=== PATIENT | female | born 1965 | race Caucasian/White ===

== ENCOUNTER 2018-05-01 12:59 | Emergency (ER) | payer MEDICARE, OTHER ==
[~2018-05-01] VITALS: Ht 162.6 cm; Wt 72.6 kg
[2018-05-01] MEDS ORDERED: OXYBUTYIN (13:17)
[2018-05-01] MEDS ORDERED: GABAPENTIN (13:18)
[2018-05-01] MEDS ORDERED: HYDROCODONE (13:21)
[2018-05-01] MEDS ORDERED: FLOMAX (13:21)
[2018-05-01] MEDS ORDERED: TRAMADOL (13:23)
[2018-05-01 13:24] LABS: BILIRUBIN,URINE NEGATIVE (NEGATIVE); CLARITY,URINE SLIGHTLY CLOUDY; COLOR,URINE YELLOW; GLUCOSE, URINE (UA) NEGATIVE (NEGATIVE); KETONES,URINE NEGATIVE (NEGATIVE); LEUKOCYTE ESTERASE ,URINE 3+ (NEGATIVE); NITRITE,URINE NEGATIVE (NEGATIVE); PH,URINE 6.5 (5-9); PROTEIN,URINE NEGATIVE (NEGATIVE); UROBILINOGEN,URINE NORMAL (NORMAL)
[2018-05-01] MEDS ORDERED: KETOROLAC 30 MG/ML VIAL IVP ONE (13:30)
--- NOTE | 2018-05-01 13:30 | ED GU-Female ---
General Chief Complaint: -Female Stated Complaint: TROUBLE URINATING Source: patient Exam Limitations: no limitations History of Present Illness Date Seen by Provider: May 01, 2018 Time Seen by Provider: 13:28 Initial Comments To ER with a one-week history of suprapubic abdominal pain described as pressure. She states it feels like an "10 pound sack of potatoes sitting on top of my bladder". She has dysuria, states that she feels the need to urinate but is only able to dribble when she goes, she always feels as though her bladder is full. She has no fevers or chills. No injury. She's had a complete hysterectomy. About 3 weeks ago she had some left flank pain that has since passed. At the onset of this pain she followed up with primary care who suspected a small kidney stone based on hematuria without sign of infection on the urine, normal KUB. She was given Flomax and hydrocodone but her symptoms persist. History of fibromyalgia. Timing/Duration: constant Severity/Quality: cramping Location: suprapubic Radiation: none Activities at Onset: none Associated Symptoms: abdominal pain, dysuria; No nausea/vomiting; urinary frequency Allergies and Home Medications Allergies Uncoded Allergies: INTERFERON (Allergy, Unknown, 05/01/18) Patient Home Medication List Home Medication List Reviewed: Yes Review of Systems Review of Systems Constitutional: see HPI EENTM: see HPI Respiratory: no symptoms reported Cardiovascular: no symptoms reported Genitourinary: see HPI Musculoskeletal: no symptoms reported Skin: no symptoms reported Psychiatric/Neurological: No Symptoms Reported Past Attucvl-Cqtjib-Oodoaa Hx Patient Social History Alcohol Use: Denies Use Recreational Drug Use: No Smoking Status: Current Everyday Smoker Recent Foreign Travel: No Contact w/Someone Who Travel: No Past Medical History Surgeries: Yes Appendectomy, Section, Gallbladder, Hysterectomy Respiratory: No Cardiac: No Neurological: No Genitourinary: No Gastrointestinal: No Musculoskeletal: Yes Fibromyalgia Endocrine: No Cancer: No Psychosocial: No Integumentary: No Physical Exam Vital Signs Vital Signs - First Documented 05/01/18 13:03 Temp 96.8 Pulse 129 Resp 18 B/P (MAP) 156/113 (127) Pulse Ox 94 Capillary Refill : Height, Weight, BMI Height: '" Weight: lbs. oz. kg; BMI Method: General Appearance: WD/WN, no apparent distress HEENT: PERRL/EOMI, normal ENT inspection Respiratory: no respiratory distress, no accessory muscle use Gastrointestinal: normal bowel sounds, non tender, soft Extremities: normal range of motion, non-tender Neurologic/Psychiatric: alert, normal mood/affect, oriented x 3 Skin: normal color, warm/dry Progress/Results/Core Measures Suspected Sepsis SIRS Temperature: Pulse: Respiratory Rate: Laboratory Tests 05/01/18 13:43: White Blood Count 4.7 Blood Pressure / Mean: Laboratory Tests 05/01/18 13:43: Creatinine 0.85, Platelet Count 166 Results/Orders Lab Results Laboratory Tests Test 05/01/18 13:18 05/01/18 13:43 Range/Units Urine Color YELLOW Urine Clarity SLIGHTLY CLOUDY Urine pH 6.5 5-9 Urine Specific [place] 1.010 L 1.016-1.022 Urine Protein NEGATIVE NEGATIVE Urine Glucose (UA) NEGATIVE NEGATIVE Urine Ketones NEGATIVE NEGATIVE Urine Nitrite NEGATIVE NEGATIVE Urine Bilirubin NEGATIVE NEGATIVE Urine Urobilinogen NORMAL NORMAL MG/DL Urine Leukocyte Esterase 3+ H NEGATIVE Urine RBC (Auto) 2+ H NEGATIVE Urine RBC RARE /HPF Urine WBC 5-10 H /HPF Urine Squamous Epithelial Cells RARE /HPF Urine Crystals NONE /LPF Urine Bacteria TRACE /HPF Urine Casts NONE /LPF Urine Mucus SMALL H /LPF Urine Culture Indicated YES White Blood Count 4.7 4.3-11.0 10^3/uL Red Blood Count 5.64 4.35-5.85 10^6/uL Hemoglobin 15.4 11.5-16.0 G/DL Hematocrit 48 35-52 % Mean Corpuscular Volume 85 80-99 FL Mean Corpuscular Hemoglobin 27 25-34 PG Mean Corpuscular Hemoglobin Concent 32 32-36 G/DL Red Cell Distribution Width 13.8 10.0-14.5 % Platelet Count 166 130-400 10^3/uL Mean Platelet Volume 12.7 H 7.4-10.4 FL Neutrophils (%) (Auto) 49 42-75 % Lymphocytes (%) (Auto) 39 12-44 % Monocytes (%) (Auto) 7 0-12 % Eosinophils (%) (Auto) 5 0-10 % Basophils (%) (Auto) 0 0-10 % Neutrophils # (Auto) 2.3 1.8-7.8 X 10^3 Lymphocytes # (Auto) 1.8 1.0-4.0 X 10^3 Monocytes # (Auto) 0.3 0.0-1.0 X 10^3 Eosinophils # (Auto) 0.2 0.0-0.3 10^3/uL Basophils # (Auto) 0.0 0.0-0.1 10^3/uL Sodium Level 139 135-145 MMOL/L Potassium Level 4.0 3.6-5.0 MMOL/L Chloride Level 104 98-107 MMOL/L Carbon Dioxide Level 26 21-32 MMOL/L Anion Gap 9 5-14 MMOL/L Blood Urea Nitrogen 8 7-18 MG/DL Creatinine 0.85 0.60-1.30 MG/DL Estimat Glomerular Filtration Rate > 60 BUN/Creatinine Ratio 9 Glucose Level 109 H 70-105 MG/DL Calcium Level 9.6 8.5-10.1 MG/DL My Orders Orders - HANDY ANDERSEN APRN Ua Culture If Indicated (05/01/18 13:00) Cbc With Automated Diff (05/01/18 13:26) Basic Metabolic Panel (05/01/18 13:26) Ct Abd/Pelvis Wo(Kidney Stone) (05/01/18 13:26) Iv Heplock-Insert (Order) (05/01/18 13:26) Ketorolac Injection (Toradol Injection) (05/01/18 13:30) Urine Culture (05/01/18 13:18) Medications Given in ED Current Medications Medications Dose Ordered Sig/Jovany Route Start Time Stop Time Status Last Admin Dose Admin Ketorolac Tromethamine 15 mg ONCE ONCE IVP 05/01/18 13:30 05/01/18 13:31 DC 05/01/18 13:41 15 MG Vital Signs/I&O 05/01/18 13:03 Temp 96.8 Pulse 129 Resp 18 B/P (MAP) 156/113 (127) Pulse Ox 94 Capillary Refill : Diagnostic Imaging Diagonstic Imaging: CT Comments NAME: LENORA ROCA Gwen [facility] REC#: [id number] PT STATUS: REG ER : 1965 PHYSICIAN: HANDY ANDERSEN APRN ADMIT DATE: 05/01/18/ER Draft Date of Exam:05/01/18 CT ABD/PELVIS WO(KIDNEY STONE) PROCEDURE: CT urinary tract, rule out kidney stone. TECHNIQUE: Multiple contiguous axial images were obtained through the abdomen and pelvis without the use of intravenous contrast. INDICATION: Pelvic pressure. No prior studies are available for comparison. The lung bases are clear. No discrete liver mass is identified. Gallbladder is surgically absent. No biliary ductal dilatation is seen. The pancreas and spleen are unremarkable. No adrenal mass is identified. No renal calculi or hydronephrosis is identified. The aorta is non-aneurysmal. Small and large bowel loops are normal caliber. No obstruction is seen. There is no ascites. There is moderate stool in the colon. The uterus appears to be absent or atrophic. Bladder is unremarkable. No inflammatory changes are seen. IMPRESSION: Moderate stool in the colon suggestive of constipation. Study is otherwise unremarkable. No acute features detected. Dictated on workstation # [id number] Dict: 05/01/18 1445 Trans: 05/01/18 1502 [facility] [id number] Interpreted by: DARWIN SKAGGS MD Electronically signed by: Departure Impression Primary Impression: Urinary tract infection Qualified Codes: N30.00 - Acute cystitis without hematuria Disposition: HOME, SELF-CARE Condition: Stable Departure-Patient Inst. Decision time for Depature: 15:22 Referrals: NO,LOCAL PHYSICIAN (PCP) Primary Care Physician MAVERICK PECK MD Patient Instructions: Urinary Tract Infection, Adult (DC) Add. Discharge Instructions: 1. Antibiotics as directed 2. Return to ER for any concerns 3. Follow-up with Dr. Peck. All discharge instructions reviewed with patient and/or family. Voiced understanding. Scripts Polyethylene Glycol 3350 (Miralax) 17 Gm Powd.pack 17 GM PO BID, #10 EACH Prov: HANDY ANDERSEN KETTLE OPERATOR 05/01/18 Phenazopyridine HCl (Pyridium) 100 Mg Tablet 100 MG PO TID, #6 TAB Prov: HANDY ANDERSEN APRN 05/01/18 Sulfamethoxazole/Trimethoprim (Bactrim Ds Tablet) 1 Each Tablet 1 EACH PO BID, #10 TAB Prov: HANDY ANDERSEN APRN 05/01/18 HANDY ANDERSEN APRN May 01, 2018 13:30
[2018-05-01 13:31] LABS: BACTERIA,URINE TRACE /HPF; RBC,URINE RARE /HPF; SQUAMOUS EPITHELIAL CELL,UR RARE /HPF
[2018-05-01 13:53] LABS: BASOPHILS % (AUTO) 0 % (0-10); EOSINOPHILS # (AUTO) 0.2 10^3/uL (0.0-0.3); EOSINOPHILS % (AUTO) 5 % (0-10); HEMATOCRIT 48 % (35-52); HEMOGLOBIN 15.4 G/DL (11.5-16.0); LYMPHOCYTES # (AUTO) 1.8 X 10^3 (1.0-4.0); LYMPHOCYTES % (AUTO) 39 % (12-44); MEAN CORPUSCULAR HEMOGLOBIN 27 PG (25-34); MEAN CORPUSCULAR HGB CONC 32 G/DL (32-36); MEAN CORPUSCULAR VOLUME 85 FL (80-99); MEAN PLATELET VOLUME 12.7 FL (7.4-10.4); MONOCYTES # (AUTO) 0.3 X 10^3 (0.0-1.0); MONOCYTES % (AUTO) 7 % (0-12); NEUTROPHILS # (AUTO) 2.3 X 10^3 (1.8-7.8); NEUTROPHILS % (AUTO) 49 % (42-75); PLATELET COUNT 166 10^3/uL (130-400); RED CELL DISTRIBUTION WIDTH 13.8 % (10.0-14.5); WHITE BLOOD COUNT 4.7 10^3/uL (4.3-11.0)
[2018-05-01 14:12] LABS: BUN/CREATININE RATIO 9; CALCIUM 9.6 MG/DL (8.5-10.1); CARBON DIOXIDE 26 MMOL/L (21-32); CHLORIDE 104 MMOL/L (98-107); CREATININE SERUM 0.85 MG/DL (0.60-1.30); GFR ESTIMATED > 60; GLUCOSE 109 MG/DL (70-105); SODIUM 139 MMOL/L (135-145)
--- NOTE | 2018-05-01 15:03 | Diagnostic Imaging Report ---
PROCEDURE: CT urinary tract, rule out kidney stone. TECHNIQUE: Multiple contiguous axial images were obtained through the abdomen and pelvis without the use of intravenous contrast. INDICATION: Pelvic pressure. No prior studies are available for comparison. The lung bases are clear. No discrete liver mass is identified. Gallbladder is surgically absent. No biliary ductal dilatation is seen. The pancreas and spleen are unremarkable. No adrenal mass is identified. No renal calculi or hydronephrosis is identified. The aorta is non-aneurysmal. Small and large bowel loops are normal caliber. No obstruction is seen. There is no ascites. There is moderate stool in the colon. The uterus appears to be absent or atrophic. Bladder is unremarkable. No inflammatory changes are seen. IMPRESSION: Moderate stool in the colon suggestive of constipation. Study is otherwise unremarkable. No acute features detected. Dictated by: Dictated on workstation # [id number]
[2018-05-01] MEDS ORDERED: POLY17PO6 PO (15:25)
[2018-05-01] MEDS ORDERED: PHEN-639 PO (15:25)
[2018-05-01] MEDS ORDERED: SULF1TAB35 PO (15:25)
[2018-05-01 15:45] VITALS: BP 134/88
== END 2018-05-01 15:35 | disposition home or self-care (01) ==
LOC: ER 13:01
DX: F17.200 Nicotine dependence, unspecified, uncomplicated (principal); Z90.710 Acquired absence of both cervix and uterus; N39.0 Urinary tract infection, site not specified; Z88.8 Allergy status to other drugs, medicaments and biological substances; Z90.49 Acquired absence of other specified parts of digestive tract; Z98.890 Other specified postprocedural states
CPT/HCPCS: 36415; 74176; 80048; 81000; 85025; 87088